=== PATIENT | female | born 1970 ===

== ENCOUNTER 2016-10-04 18:21 | Emergency (ER) | payer MEDICAID ==
[2016-10-04 18:32] VITALS: TEMP 99.3; BMI 25.0
[2016-10-04] MEDS ORDERED: Oxycodone/Acetaminophen 5/325 mg Tab PO STA (18:41)
[2016-10-04] MEDS ORDERED: Tmp-Smz 800 mg-160 mg DS Tab PO STA (18:41)
--- NOTE | 2016-10-04 18:41 | ED PDOC ---
Arrival/HPI - General Chief Complaint: Abnormal Skin Integrity Time Seen by Provider: 10/04/16 18:37 Historian: Patient - History of Present Illness Narrative History of Present Illness (Text): 10/04/16 18:37 46yr old female presents today with an 8 day history of pain, swelling, erythema to right posterior thigh. pt with subjective fevers at home. c/o pain with ambulation. Patient states she has been taking Motrin for pain without improvement. Patient states today she noticed a discharge coming from the site. Denies numbness weakness or tingling in the extremities. No other complaints Time/Duration: Other (8 days) Past Medical History - Provider Review Nursing Documentation Reviewed: Yes - Travel History Have you recently traveled outside [place] w/in the past 3 mons?: No - Tetanus Immunization Tetanus Immunization: Unknown - Cardiac Hx Cardiac Disorders: No - Pulmonary Hx Respiratory Disorders: Yes Hx Asthma: Yes - Neurological Hx Neurological Disorder: No - HEENT Hx HEENT Disorder: No - Renal Hx Renal Disorder: No - Endocrine/Metabolic Hx Endocrine Disorders: No - Hematological/Oncological Hx Blood Disorders: No - Integumentary Hx Dermatological Disorder: No - Musculoskeletal/Rheumatological Hx Musculoskeletal Disorders: No - Gastrointestinal Hx Gastrointestinal Disorders: No - Genitourinary/Gynecological Hx Genitourinary Disorders: No - Psychiatric Hx Psychophysiologic Disorder: No Hx Substance Use: No - Surgical History Hx Musculoskeletal Surgery: Yes (right shoulder) Other/Comment: Abdominal surgery. Chin surgery Family/Social History - Physician Review Nursing Documentation Reviewed: Yes Family/Social History: Unknown Family HX Smoking Status: Never Smoked Hx Alcohol Use: No Hx Substance Use: No Allergies/Home Meds Allergies/Adverse Reactions: Allergies No Known Allergies Allergy (Verified 10/04/16 18:31) Home Medications: Home Meds Medication Instructions Recorded Confirmed Albuterol HFA [Ventolin HFA 90 2 puff IH PRN PRN 10/04/16 10/04/16 mcg/actuation (8 g)] Diclofenac [Diclofenac Sodium] 75 mg PO TID 10/04/16 10/04/16 Ibuprofen [Motrin Tab] 800 mg PO Q6H PRN 10/04/16 10/04/16 Naproxen [Naprosyn] 500 mg PO Q6H PRN 10/04/16 10/04/16 Review of Systems - Review of Systems Constitutional: Fevers (subjective). absent: Fatigue Respiratory: absent: SOB, Cough Cardiovascular: absent: Chest Pain Gastrointestinal: absent: Abdominal Pain Musculoskeletal: Arthralgias. absent: Back Pain, Neck Pain Skin: Abscess Neurological: absent: Headache, Dizziness Psychiatric: absent: Anxiety, Depression Physical Exam Vital Signs Reviewed: Yes Vital Signs Temp Pulse Resp BP Pulse Ox 10/04/16 20:34 81 17 145/80 99 10/04/16 18:31 99.3 F 88 16 147/93 H 100 Temperature: Afebrile Blood Pressure: Hypertensive Pulse: Regular Respiratory Rate: Normal Appearance: Positive for: Well-Appearing, Non-Toxic, Uncomfortable Pain Distress: None Mental Status: Positive for: Alert and Oriented X 3 - Systems Exam Head: Present: Atraumatic Neck: Present: Normal Range of Motion Respiratory/Chest: Present: Clear to Auscultation, Good Air Exchange. No: Respiratory Distress, Accessory Muscle Use Cardiovascular: Present: Regular Rate and Rhythm, Normal S1, S2. No: Murmurs Abdomen: No: Tenderness Lower Extremity: Present: Normal ROM, Tenderness (right posterior thigh there is a large 4cm round area of erythema with a small area of fluctuance; + small amout of purulent discharge noted; ), Swelling, Erythema, Neurovascularly Intact , Capillary Refill < 2 s Neurological: Present: GCS=15, Speech Normal Skin: Present: Warm, Dry Psychiatric: Present: Alert, Oriented x 3 Medical Decision Making ED Course and Treatment: 10/04/16 19:51 Patient is nontoxic well-appearing in no distress. Vital signs are stable. Motrin, Percocet given for pain Bactrim DS p.o., kelfex po I&D performed; dressing applied. Patient was advised to use warm compresses warm soaks return to the emergency room in 2 days for packing removal. return immediately if symptoms worsen persist or if new symptoms develop. 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 Warm compresses and warm soaks frequently Return in 2 days for [packing removal] and wound check Return immediately if symptoms worsen persist or if new symptoms develop: High fevers, increasing pain, increasing redness, swelling or if any other concerning symptoms develop. - Medication Orders Current Medication Orders: Discontinued Medications Cephalexin Monohydrate (Keflex) 500 mg PO STAT STA PRN Reason: Protocol Stop: 10/04/16 18:42 Last Admin: 10/04/16 19:01 Dose: 500 mg Ketorolac Tromethamine (Toradol) 60 mg IM STAT STA Stop: 10/04/16 18:42 Last Admin: 10/04/16 18:55 Dose: 60 mg Oxycodone/Acetaminophen (Percocet 5/325 Mg Tab) 1 tab PO STAT STA Stop: 10/04/16 18:42 Last Admin: 10/04/16 18:55 Dose: 1 tab Trimethoprim/Sulfamethoxazole (Bactrim Ds Tab) 1 tab PO STAT STA PRN Reason: Protocol Stop: 10/04/16 18:42 Last Admin: 10/04/16 18:56 Dose: 1 tab Procedures - Incision and Drainage Site: right posterior upper thigh Blade Size: 11 I & D Procedure: sterile drapes applied, sterile dressing applied, gauze wick placed Progress: right posterior upper thigh; 4cc lidocaine 1% injected locally around central fluctuance using sterile technique. adequate anesthesia; small incision made over central fluctuance, small amount of purulent discharge released; wound explored for loculations. 1/ 4in gauze packing placed; dressing applied; pt tolerated procedure well; no complications. Disposition/Present on Arrival - Present on Arrival Any Indicators Present on Arrival: No History of DVT/PE: No History of Uncontrolled Diabetes: No Urinary Catheter: No History of Decub. Ulcer: No History Surgical Site Infection Following: None - Disposition Have Diagnosis and Disposition been Completed?: Yes Diagnosis: Abscess of thigh Disposition: HOME/ ROUTINE Disposition Time: 19:44 Patient Plan: Discharge Condition: GOOD Discharge Instructions (ExitCare): Abscess (ED) Print Language: ICELANDIC Additional Instructions: Motrin one tablet every 6 hours as needed for pain percocet; one tablet every 6 hours as needed for moderate to severe pain: May cause drowsiness Bactrim DS: One tablet twice daily x7 days Keflex; 4 times daily x 7 days. Warm compresses and warm soaks frequently Return in 2 days for [packing removal] and wound check Return immediately if symptoms worsen persist or if new symptoms develop: High fevers, increasing pain, increasing redness, swelling or if any other concerning symptoms develop. Prescriptions: Cephalexin [Keflex] 500 mg PO QID #28 capsule Ibuprofen [Motrin] 600 mg PO Q6H PRN #20 tab PRN Reason: pain/fever reduction oxyCODONE/Acetaminophen [Percocet 5/325 mg Tab] 1 tab PO Q6H PRN #8 tab PRN Reason: moderate to severe pain Sulfamethoxazole/Trimethoprim [Bactrim DS 800 mg-160 mg] 1 tab PO BID #14 tab Referrals: Tony Jade MD [Staff Provider] - [place] [facility] [place] [facility] [place] [facility] [place] - [place] [facility] [place] - Follow up with primary Forms: WORK NOTE
[2016-10-04 20:34] VITALS: BP 145/80; PULSE 81; RESP 17; O2SAT 99
== END 2016-10-04 20:36 | disposition home or self-care (01) ==
LOC: ED 18:21 → MERGE 18:21 → ED 20:36
DX: L02.415 Cutaneous abscess of right lower limb (principal)
CPT/HCPCS: 10060; 96372; 99284; J1885

== ENCOUNTER 2016-10-06 12:12 | Emergency (ER) | payer MEDICAID ==
[2016-10-06 12:12] VITALS: BMI 25.0
--- NOTE | 2016-10-06 13:29 | ED PDOC ---
Arrival/HPI - General Chief Complaint: Wound Check Time Seen by Provider: 10/06/16 13:10 Historian: Patient - History of Present Illness Narrative History of Present Illness (Text): 10/06/16 13:26 This 46 yo female presents to this ED for packing removal. Patient had an I&D x 2 days ago on right posterior thigh. Patient denies new symptoms, or fever. Time/Duration: Other (2 days ago) Context: Home Past Medical History - Provider Review Nursing Documentation Reviewed: Yes - Infectious Disease Hx of Infectious Diseases: None - Tetanus Immunization Tetanus Immunization: Unknown - Cardiac Hx Cardiac Disorders: No - Pulmonary Hx Respiratory Disorders: Yes Hx Asthma: Yes - Neurological Hx Neurological Disorder: No - HEENT Hx HEENT Disorder: No - Renal Hx Renal Disorder: No - Endocrine/Metabolic Hx Endocrine Disorders: No - Hematological/Oncological Hx Blood Disorders: No - Integumentary Hx Dermatological Disorder: No - Musculoskeletal/Rheumatological Hx Musculoskeletal Disorders: No - Gastrointestinal Hx Gastrointestinal Disorders: No - Genitourinary/Gynecological Hx Genitourinary Disorders: No - Psychiatric Hx Psychophysiologic Disorder: No Hx Substance Use: No - Surgical History Hx Musculoskeletal Surgery: Yes (right shoulder) Other/Comment: Abdominal surgery. Chin surgery - Anesthesia Hx Anesthesia: Yes Hx Anesthesia Reactions: No Hx Malignant Hyperthermia: No - Suicidal Assessment Feels Threatened In Home Enviroment: No Family/Social History - Physician Review Nursing Documentation Reviewed: Yes Family/Social History: No Known Family HX Smoking Status: Never Smoked Hx Alcohol Use: No Hx Substance Use: No Allergies/Home Meds Allergies/Adverse Reactions: Allergies No Known Allergies Allergy (Verified 10/06/16 12:49) Home Medications: Home Meds Medication Instructions Recorded Confirmed Ibuprofen [Motrin Tab] 800 mg PO Q6H PRN 10/04/16 10/06/16 Review of Systems - Review of Systems Constitutional: Normal. absent: Fatigue, Weight Change, Fevers Eyes: Normal. absent: Vision Changes ENT: Normal Respiratory: Normal. absent: SOB, Cough Cardiovascular: Normal Gastrointestinal: Normal Genitourinary Female: Normal. absent: Dysuria, Frequency, Hematuria Musculoskeletal: Normal Skin: Other ((+) wound check, and packing removal) Neurological: Normal Endocrine: Normal Hemo/Lymphatic: Normal Psychiatric: Normal Physical Exam Vital Signs Temp Pulse Resp BP Pulse Ox 10/06/16 13:34 97.6 F 85 20 125/71 98 10/06/16 12:44 98.6 F 75 19 133/83 97 Temperature: Afebrile Blood Pressure: Normal Pulse: Regular Respiratory Rate: Normal Appearance: Positive for: Well-Appearing, Non-Toxic, Comfortable Pain Distress: None Mental Status: Positive for: Alert and Oriented X 3 - Systems Exam Head: Present: Atraumatic, Normocephalic Pupils: Present: PERRL Extroacular Muscles: Present: EOMI Conjunctiva: Present: Normal Mouth: Present: Moist Mucous Membranes Neck: Present: Normal Range of Motion Upper Extremity: Present: Normal Inspection, Normal ROM, NORMAL PULSES, Neurovascularly Intact, Capillary Refill < 2s Lower Extremity: Present: NORMAL PULSES, Normal ROM, Neurovascularly Intact, Capillary Refill < 2 s, Other ((+) healing wound right posterior thigh. Very mild tenderness on palpation. No cellulitis or drainage noted. Packing was in place.). No: CALF TENDERNESS Neurological: Present: GCS=15, CN II-XII Intact, Speech Normal, Motor Func Grossly Intact, Normal Sensory Function, Normal Cerebellar Funct Skin: Present: Warm, Dry, Normal Color. No: Rashes Psychiatric: Present: Alert, Oriented x 3 Medical Decision Making ED Course and Treatment: 10/06/16 13:26 Re-evaluation. Patient feels better. Discussed results and plan with patient who expresses understanding. All questions answered and there is agreement with the plan to discharge home with instructions. Patient stable for discharge. Return if symptoms persist or worsen. Re-evaluation Time: 13:27 Reassessment Condition: Re-examined - Procedure PROCEDURE NOTE (Text): 10/06/16 13:27 Packing removal Under sterile technique, wound packing was removed. Wound was clean with Betadine. Gauze was applied. No discharge, or erythema. Patient tolerated procedure well. Disposition/Present on Arrival - Present on Arrival Any Indicators Present on Arrival: No History of DVT/PE: No History of Uncontrolled Diabetes: No Urinary Catheter: No History of Decub. Ulcer: No History Surgical Site Infection Following: None - Disposition Have Diagnosis and Disposition been Completed?: Yes Diagnosis: Encounter for abscess packing removal, Encounter for wound re-check Disposition: HOME/ ROUTINE Disposition Time: 13:28 Patient Plan: Discharge Condition: IMPROVED Discharge Instructions (ExitCare): Incision and Drainage (ED) Additional Instructions: Call private doctor for follow up visit in 1-2 days. Clean wound daily with soap and water daily. Continue with antibiotic. Return to emergency if infection worsen. Referrals: Nhan Rios MD [Primary Care Provider] - Follow up with primary
[2016-10-06 13:35] VITALS: BP 125/71; PULSE 85; RESP 20; TEMP 97.6; O2SAT 98
== END 2016-10-06 13:38 | disposition home or self-care (01) ==
LOC: ED 12:12
DX: Z51.89 Encounter for other specified aftercare (principal); Z48.00 Encounter for change or removal of nonsurgical wound dressing